=== PATIENT | male | born 1940 | race Caucasian/White ===

== ENCOUNTER 2019-04-13 13:14 | Outpatient (CLI) | payer MEDICARE ==
[~2019-04-13] VITALS: Ht 172.7 cm; Wt 74.8 kg
[2019-04-13 13:35] VITALS: BP 107/63
--- NOTE | 2019-04-13 16:45 | Consultation ---
DATE OF CONSULTATION: 04/13/2019 CONSULTING PHYSICIAN: Walter Shah M.D. CHIEF COMPLAINT: Diarrhea, abdominal pain. HISTORY OF PRESENT ILLNESS: This is a 79-year-old very pleasant [place] male with extensive GI problems including significant diverticulosis, requiring multiple surgeries. He has only a small part of his colon left. Therefore, he has been having diarrhea for 4 times a day, watery in nature. Every time he eats, he said he has to go to bathroom, but this is not the problem that he is here for. He also complained of abdominal pain, mostly on the left side operative site. No nausea. No vomiting. No dysphagia. No odynophagia. No weight loss. No bright red blood per rectum. No melena. PAST MEDICAL HISTORY: 1. Diverticulosis. 2. Coronary artery disease. 3. Hypertension. 4. Hypercholesterolemia. 5. Diabetes. 6. Arthritis. PAST SURGICAL HISTORY: 1. Colectomy. 2. Defibrillator placement. MEDICATIONS: Please see medication reconciliation list. FAMILY HISTORY: Father had diabetes. Mother had cancer. Sister had cancer. SOCIAL HISTORY: The patient drinks alcohol socially. Denies any tobacco or IV drug abuse. ALLERGIES: No known drug allergy. REVIEW OF SYSTEMS: Positive for the abdominal pain, mostly on the left side and diarrhea as mentioned above. PHYSICAL EXAMINATION: VITAL SIGNS: Temperature 97.5, blood pressure is 107/63, pulse is 75, respirations 20. HEENT: Normocephalic and atraumatic. Sclerae anicteric. NECK: Supple. No evidence of obvious lymphadenopathy. CARDIOVASCULAR: Regular rate and rhythm. Plus S1 and S2. No obvious murmur. LUNGS: Decreased breath sounds bilaterally based on the supine exam. ABDOMEN: soft. Bowel sounds are present. Minimal tenderness to palpation in the left upper quadrant. No rebound. No guarding. No peritoneal sign. EXTREMITIES: No cyanosis. No clubbing. No edema. ASSESSMENT: This is a 79-year-old male with abdominal pain, epigastric and left upper quadrant and also diarrhea most probably from short colon. PLAN: The patient was started on trial of the cholestyramine. He was instructed to start 1 pack per day and increase it to 3 as needed for control of diarrhea. Also, the patient needs a colonoscopy and never had one and also in addition is endoscopy given epigastric abdominal pain. He also needs some set of labs on the day of procedure including CBC, CMP, amylase, and lipase. The patient is scheduled for next week for all these procedures and labs. We will follow after above is done. I want to thank Dr. Scott for this kind referral. Walter Shah M.D. DR: PONCHO JOB#: [id number] CC: Johnny Scott M.D.; Fax#: [phone]
[2019-04-13] MEDS ORDERED: VITAMIN D1000 UNI1 ORAL (17:17)
[2019-04-13] MEDS ORDERED: PRAVASTATIN SOD10 M1 ORAL (17:17)
[2019-04-13] MEDS ORDERED: CARVEDILOL6.25 MG ORAL (17:17)
[2019-04-13] MEDS ORDERED: METFORMIN HCL1000 M1 ORAL (17:17)
[2019-04-13] MEDS ORDERED: BENAZEPRIL HCL10 MG ORAL (17:17)
[2019-04-13] MEDS ORDERED: FISH OIL CAP1000 MG ORAL (17:17)
== END 2019-04-13 14:51 | disposition home or self-care (01) ==
LOC: PAN 13:14
DX: R19.7 Diarrhea, unspecified (principal); R10.9 Unspecified abdominal pain; K57.90 Diverticulosis of intestine, part unspecified, without perforation or abscess without bleeding; I11.9 Hypertensive heart disease without heart failure; I25.10 Atherosclerotic heart disease of native coronary artery without angina pectoris; E78.00 Pure hypercholesterolemia, unspecified; E11.9 Type 2 diabetes mellitus without complications; M19.90 Unspecified osteoarthritis, unspecified site
CPT/HCPCS: 99202

== ENCOUNTER 2019-04-19 07:16 | Day surgery (SDC) | payer MEDICARE ==
[2019-04-19] VITALS (8 sets, daily range): BP systolic 118–148; BP diastolic 69–87
[~2019-04-19] VITALS: Ht 172.7 cm; Wt 72.6 kg
[~2019-04-19 07:16] MED LIST: BENAZEPRIL HCL10 MG ORAL; CARVEDILOL6.25 MG ORAL; FISH OIL CAP1000 MG ORAL; METFORMIN HCL1000 M1 ORAL; PRAVASTATIN SOD10 M1 ORAL; VITAMIN D1000 UNI1 ORAL
[2019-04-19] MEDS ORDERED: CRESTOR10 M2 ORAL (07:54)
[2019-04-19] MEDS ORDERED: CENTRUM MEN'S1 EACH PO (07:54)
[2019-04-19] MEDS ORDERED: LR 1000ml 1,000 ML IVLG SCH (08:33)
[2019-04-19] MEDS ORDERED: fentaNYL 100 mcg/2 mL ONE (09:27)
[2019-04-19] MEDS ORDERED: Sodium Chloride 10ml vial INJ ONE (09:30)
--- NOTE | 2019-04-19 09:45 | Pre-Procedure Note/Attestation ---
Pre-Procedure Note/Attestation Complete Prior to Procedure Planned Procedure: not applicable Procedure Narrative: esophagogastroduodenoscopy and colonoscopy Indications for Procedure Pre-Operative Diagnosis: screening colon, GERD Attestation I attest that I discussed the nature of the procedure; its benefits; risks and complications; and alternatives (and the risks and benefits of such alternatives ), prior to the procedure, with the patient (or the patient's legal inside sales representative). I attest that, if there was a reasonable possibility of needing a blood transfusion, the patient (or the patient's legal inside sales representative) was given the [facility] standardized written summary, pursuant to the Oskar Shambaugh Blood Safety Act ([place] Health and Safety Code # 1645, as amended). I attest that I re-evaluated the patient just prior to the surgery and that there has been no change in the patient's H&P, except as documented below: Walter Shah MD Apr 19, 2019 09:45
--- NOTE | 2019-04-19 09:47 | Short Stay Surgery H&P ---
History of Present Illness History of Present Illness Chief Complaint see recent office note HPI Preston Polk Jr is a 79 year old male who was admitted on for Gerd, Abdominal Pain,Screening Patient History Allergies: Coded Allergies: No Known Allergies (Verified , 04/19/19) Medication History Scheduled Benazepril Hcl* (Benazepril Hcl*), 10 MG ORAL DAILY, (Reported) Carvedilol* (Carvedilol*), 6.25 MG ORAL EVERY 12 HOURS, (Reported) Cholecalciferol (Vitamin D3)* (Vitamin D*), Unknown Dose ORAL DAILY, (Reported) Fish Oil (Fish Oil 1,000 mg Capsule), 3,000 MG ORAL DAILY, (Reported) Metformin Hcl* (Metformin Hcl*), 1,000 MG ORAL BIDAC, (Reported) Multivits,Ca,Min/Iron/FA/Lycop (Centrum Men's Tablet), 1 EACH PO DAILY, ( Reported) Rosuvastatin Calcium* (Crestor*), 10 MG ORAL DAILY, (Reported) Physical Exam Vital Signs Last Vital Signs Date Time Temp Pulse Resp B/P (MAP) Pulse Ox O2 Delivery O2 Flow Rate FiO2 04/19/19 07:51 Room Air 04/19/19 07:41 97.0 78 18 148/87 98 Plan Attestation Are the patient's medical conditions optimized for surgery? Walter Shah MD Apr 19, 2019 09:47
--- NOTE | 2019-04-19 10:08 | Anethesia Preoperative Eval ---
Anesthesia Pre-op PMH/ROS General Date of Evaluation: Apr 19, 2019 Time of Evaluation: 09:42 Anesthesiologist: Zeke ASA Score: ASA 3 Mallampati Score Class I : Soft palate, uvula, fauces, pillars visible Class II: Soft palate, uvula, fauces visible Class III: Soft palate, base of uvula visible Class IV: Only hard plate visible Mallampati Classification: Class II Surgeon: Alyssa Diagnosis: Abdominal pain Surgical Procedure: EGD Colonoscopy Anesthesia History: none Family History: no anesthesia problems Allergies: Coded Allergies: No Known Allergies (Verified , 04/19/19) Medications: see eMAR Patient NPO?: Yes NPO Date: Apr 19, 2019 Past Medical History Cardiovascular: Reports: HTN, CAD - stents in place stable, IA, arrhythmia - Pacer in place Pulmonary: Denies: asthma, COPD, MIGUEL ANGEL, other Gastrointestinal/Genitourinary: Reports: GERD, other - Diverticulosis s/p partial colectomy; Denies: CRI, ESRD Neurologic/Psychiatric: Reports: CVA, depression/anxiety; Denies: dementia, TIA, other Endocrine: Reports: DM; Denies: hypothyroidism, steroids, other HEENT: Reports: cataract (L), cataract (R) - s/p bilateral Sx; Denies: glaucoma, [place] (L), [place] (R), other Hematology/Immune: Denies: anemia, DVT, bleeding disorder, other Musculoskeletal/Integumentary: Reports: OA; Denies: RA, DJD, DDD, edema, other PMH Narrative: as above PSxH Narrative: PArtial colectomy, pacemaker and coronary stents placement Anesthesia Pre-op Phys. Exam Physician Exam Last Vital Signs Date Time Temp Pulse Resp B/P (MAP) Pulse Ox O2 Delivery O2 Flow Rate FiO2 04/19/19 07:51 Room Air 04/19/19 07:41 97.0 78 18 148/87 98 Constitutional: NAD Neurologic: CN 2-12 intact Cardiovascular: RRR, no M/R/G Respiratory: CTA Gastrointestinal: S/NT/ND Airway Exam Mallampati Score: Class II MO: limited Neck: stiff ROM: limited Teeth: missing Dentures: upper, lower Anesthesia Pre-op A/P Studies Pre-op Studies: EKG - NSR Risk Assessment & Plan Assessment: ASA 3 Plan: MAC Status Change Before Surgery: No Vakulenko,Gray MD Apr 19, 2019 10:08
--- NOTE | 2019-04-19 10:23 | Immediate Post-Op Evaluation ---
Immediate Post-Op Evalulation Immediate Post-Op Evalulation Procedure: EGD Colonoscopy Date of Evaluation: Apr 19, 2019 Time of Evaluation: 10:21 IV Fluids: 600 Blood Products: none Estimated Blood Loss: none Urinary Output: none Blood Pressure Systolic: 121 Blood Pressure Diastolic: 71 Pulse Rate: 72 Respiratory Rate: 20 O2 Sat by Pulse Oximetry: 98 Temperature (Fahrenheit): 97.6 Pain Score (1-10): 1 Nausea: No Vomiting: No Complications none Patient Status: awake, patent, none Hydration Status: adequate Gray Alanis MD Apr 19, 2019 10:23
--- NOTE | 2019-04-19 11:16 | 48 Hour Post Anesthesia Eval ---
Post Anesthesia Evaluation Procedure: EGD Colonoscopy Date of Evaluation: Apr 19, 2019 Time of Evaluation: 11:14 Blood Pressure Systolic: 142 0: 68 Pulse Rate: 72 Respiratory Rate: 20 Temperature (Fahrenheit): 97.6 O2 Sat by Pulse Oximetry: 98 Airway: patent Nausea: No Vomiting: No Pain Intensity: 1 Hydration Status: adequate Cardiopulmonary Status: stable Mental Status/LOC: patient returned to baseline Follow-up Care/Observations: n/a Post-Anesthesia Complications: none Follow-up care needed: ready to discharge Gray Alanis MD Apr 19, 2019 11:16
--- NOTE | 2019-04-19 16:15 | Procedure Note ---
DATE OF PROCEDURE: 04/19/2019 SURGEON: Walter Shah M.D. PROCEDURE: Upper endoscopy with biopsy and colonoscopy with biopsy. ANESTHESIA: Per Dr. Alanis. INSTRUMENT: Olympus upper endoscope and colonoscope. INDICATION: GERD, diarrhea, screening colonoscopy evaluation. REASON FOR PROCEDURE: The procedure, risks, benefits, and possible consequences, including hemorrhage, aspiration, perforation and infection, and alternative treatments, were explained to the patient/legal guardian by Dr. Walter Shah and the patient/legal guardian understood and accepted these risks. DESCRIPTION OF PROCEDURE: After informed consent was obtained and the patient was adequately sedated, Olympus upper endoscope was advanced from mouth into the second portion of the duodenum and retroflexion was performed in the stomach. GE junction was found to be about 40 cm from the incisors. No evidence of any esophagitis. No esophageal mass. In the stomach, there was diffuse gastritis. Random biopsies from body and antrum were obtained to rule out H. pylori infection. At this time, the upper endoscope was retrieved. The patient was turned over for colonoscopy. First, rectal exam was performed, which was positive for internal hemorrhoids. Then, the scope was advanced into rectum. We advanced the scope to about 25 cm from the incisors where we saw anastomosis. We intubated both limbs of the anastomosis. One of them was a colon, most probably sigmoid portion of the colon and had a end at the pouch. There are two polyps in this colon segment, which we biopsied. Then, we came back to anastomosis, I went to the other limb, it seems to be most probably small bowel, the mucosa was changed to become more likely colonic. At this time, we came back to the anastomosis again. There was another polyp in the rectum, flat, this polyp was measured roughly about 4 mm, removed with the cold biopsy forceps technique. We also randomly biopsied the remaining of the colon to rule out microscopic colitis. Then, the scope was pulled back into the rectum where retroflexion was performed, which showed internal hemorrhoids. SUMMARY OF FINDINGS: 1. Gastritis, status post biopsy. 2. History of chronic colonic surgery with anastomosis at 25 cm from the anal verge. We do one containing end of the colon, most probably remnant of the colon, which has two polyps in it, which were removed with cold biopsy forceps technique. Another polyp in the rectosigmoid area, which was removed with cold biopsy forceps technique. 3. Internal hemorrhoids. RECOMMENDATIONS: Follow up pathology and treat accordingly. Given three polyps, we recommend repeat colonoscopy in three years. The patient to start trial of the cholestyramine for his diarrhea, pending biopsy results coming back. I want to thank, Dr. Johnny Scott, for this kind referral. Walter Shah M.D. DR: BALAJI JOB#: [id number] CC: Johnny Scott M.D.; Fax#: [phone]
--- NOTE | 2019-04-23 14:50 | Cardiology Report ---
APPROVED REPORT EKG Measurement Heart [id number] IA [id number] [id number] Normal sinus rhythm Anterior infarct, age undetermined Abnormal ECG
== END 2019-04-19 12:15 | disposition home or self-care (01) ==
LOC: GAS 07:16
DX: Z12.11 Encounter for screening for malignant neoplasm of colon (principal); K21.9 Gastro-esophageal reflux disease without esophagitis; R19.7 Diarrhea, unspecified; K64.8 Other hemorrhoids; Z79.899 Other long term (current) drug therapy; Z79.84 Long term (current) use of oral hypoglycemic drugs; I25.2 Old myocardial infarction; I11.9 Hypertensive heart disease without heart failure; Z95.5 Presence of coronary angioplasty implant and graft; F32.9 Major depressive disorder, single episode, unspecified; F41.9 Anxiety disorder, unspecified; E11.9 Type 2 diabetes mellitus without complications; Z95.0 Presence of cardiac pacemaker; Z86.73 Personal history of transient ischemic attack (TIA), and cerebral infarction without residual deficits; K29.50 Unspecified chronic gastritis without bleeding; B96.81 Helicobacter pylori [H. pylori] as the cause of diseases classified elsewhere
CPT/HCPCS: 43239; 45380; 82962; 93005; J3010; 94003; 94150